=== PATIENT | male | born 1940 | race American Indian/Alaskan Native ===

== ENCOUNTER 2020-05-04 17:43 | Inpatient (IN) | payer SELFPAY ==
[2020-05-04] MEDS ORDERED: HEPARIN 10,000 UNITS/10 ML VIAL IV ONE (17:47)
--- NOTE | 2020-05-04 17:50 | Emergency Department Report ---
HPI - General PUI?: No Time Seen by Provider: 05/04/20 17:44 - HPI HPI: Room 41 The patient is a 79-year-old male present with a chief complaint of STEMI. The patient reportedly went to [facility] today for blood pressure management. While there he was found to be hypertensive, diaphoretic and bradycardic and EKG was performed that was concerning for a STEMI. Patient denies ever having had chest pain but admits to shortness of breath nausea and vomiting while with EMS. ED Past Medical Hx - Past Medical History Hx Diabetes: Yes Hx COPD: Yes Additional medical history: "Platelet dysfunction" - Surgical History Past Surgical History?: No - Family History Family history: no significant - Social History Smoking Status: Unknown if ever smoked Substance Use Type: None ED Review of Systems ROS: Stated complaint: STEMI Other details as noted in HPI Physical Exam - Physical Exam Physical Exam: GENERAL: The patient is well-developed well-nourished male lying on stretcher not appearing to be in acute distress. [] HEENT: Normocephalic. Atraumatic. Extraocular motions are intact. Patient has moist mucous membranes. NECK: Supple. Trachea midline CHEST/LUNGS: Clear to auscultation. There is no respiratory distress noted. HEART/CARDIOVASCULAR: Regular. There is no tachycardia. There is no gallop rub or murmur. ABDOMEN: Abdomen is soft, nontender. Patient has normal bowel sounds. There is no abdominal distention. SKIN: There is no rash. There is no edema. There is no diaphoresis. NEURO: The patient is awake, alert, and oriented. The patient is cooperative. The patient has no focal neurologic deficits. The patient has normal speech MUSCULOSKELETAL: There is no evidence of acute injury. ED Course - Consultations Consultation #1: 05/04/20 17:26 EKG sent to in case discussed with Dr. La. Code STEMI called- agrees with code STEMI ED Medical Decision Making - EKG Data -: EKG Interpreted by Me EKG shows normal: sinus rhythm Rate: normal - EKG Data When compared to previous EKG there are: previous EKG unavailable Interpretation: acute VT (ST elevations inferiorly with reciprocal changes) Critical care attestation.: If time is entered above; I have spent that time in minutes in the direct care of this critically ill patient, excluding procedure time. ED Disposition Clinical Impression: STEMI (ST elevation myocardial infarction) Disposition: DC-09 OP ADMIT IP TO THIS HOSP Is pt being admited?: Yes Does the pt Need Aspirin: Yes Condition: Serious Time of Disposition: 17:56 (Awaiting Clinical Research Scientist)
[2020-05-04] MEDS: HEPARIN/ 0.45% NACL DRIP 25,000 UNIT/500 ML BAG IV SCH ×2 (17:57→21:25)
[2020-05-04 18:00] LABS: Basophils # (Auto) 0.1 K/mm3 (0.0-0.1); Basophils % (Auto) 0.5 % (0.0-1.8); Eosinophils % (Auto) 0.2 % (0.0-4.3); Hematocrit 32.3 % (35.5-45.6); Hemoglobin 10.6 gm/dl (11.8-15.2); Lymphocytes # (Auto) 1.4 K/mm3 (1.2-5.4); Lymphocytes % (Auto) 10.6 % (13.4-35.0); Mean Corpuscular HGB Conc 33 % (32-34); Mean Corpuscular Volume 87 fl (84-94); Monocytes # (Auto) 0.8 K/mm3 (0.0-0.8); Monocytes % (Auto) 5.9 % (0.0-7.3); Platelet Count 218 K/mm3 (140-440); Red Blood Count 3.72 M/mm3 (3.65-5.03); Red Cell Distribution Width 13.6 % (13.2-15.2)
[2020-05-04] MEDS ORDERED: HEPARIN/NS 5000 UNIT/500ML 500 ML IR ONE ×3 (18:05→19:21)
[2020-05-04] MEDS ORDERED: MIDAZOLAM 2 MG/2 ML INJ ONE (18:05)
[2020-05-04] MEDS ORDERED: fentaNYL 100 MCG/2 ML INJ ONE (18:06)
[2020-05-04] MEDS ORDERED: NITROGLYCERIN SYRINGE 0 ML ONE (18:07)
[2020-05-04 18:13] LABS: Partial Thromboplastin Time 25.6 Sec. (24.2-36.6)
[2020-05-04] MEDS ORDERED: SODIUM CHLORIDE 0.9% 500 ML 500 ML ONE ×2 (18:15→21:35)
[2020-05-04 18:17] LABS: Calcium 8.4 mg/dL (8.4-10.2)
[2020-05-04] MEDS ORDERED: EPINEPHrine 1 MG/10 ML SYRINGE ONE ×2 (18:17→18:18)
[2020-05-04] MEDS ORDERED: LIDOCAINE PF 100 MG/5 ML (CARDIAC SYRINGE) IV ONE ×2 (18:17→18:18)
[2020-05-04] MEDS ORDERED: ATROPINE 0.1% (1 MG/10 ML) CARDIAC SYRINGE ONE ×3 (18:17→18:33)
[2020-05-04] MEDS ORDERED: PHENYLEPHRINE/NS 1,000 MCG/10 ML SYRINGE (OR USE) IV ONE (18:17)
[2020-05-04] MEDS: LIDOCAINE (2%) 20 MG/1 ML VIAL 20 ML MDV INFILTRATI ONE ×2 (18:20→18:23)
[2020-05-04] MEDS ORDERED: ALBUTEROL 2.5 MG/3 ML NEBU IH PRN (18:26)
--- NOTE | 2020-05-04 18:28 | History and Physical Report ---
History of Present Illness Chief complaint: My blood pressure is high History of present illness: 79 YO Male with DM, COPD presents to ED for evaluation. Pt reports "my blood pressure is high". Pt states that he has experienced uncontrolled blood pressure. Pt was seen and evaluated by his pcp and was found to be hype rtensive, diaphoretic and bradycardic. An EKG was performed and the patient was found to have evidence of ischemia. EMS was notified and the patient was found to be in distress and subsequently transported to [facility] for further care and evaluation. The patient was seen and evaluated in ED and found to have evidence of STEMI as well as, CHF, Bradycardia, SARAH, and Acidosis. Cardiology consulted in ED, and the patient was taken urgently to feed mill lab technician for surgical intervention. Pt admitted to ICU and initiated on telemtry due to increased risk for cardiac decompensation. Pt denies fever, chills, CP, palpitations, NVD, Trauma, productive cough, skin rash, recent ill contacts, or known exposure to COVID 19. Advanced care planning conducted in ED. Past History Past Medical History: COPD, diabetes Past Surgical History: No surgical history, Other (reviewed) Social history: , lives with family Family history: no significant family history (reviewed) Medications and Allergies Allergies Allergy/AdvReac Type Severity Reaction Status Date / Time No Known Allergies Allergy Unverified 05/04/20 17:51 Home Medications Medication Instructions Recorded Confirmed Last Taken Type metFORMIN [Glucophage] 1,000 mg PO BID 05/04/20 05/04/20 Unknown History Active Meds: Active Medications Albuterol (Albuterol 2.5 Mg/3 Ml Nebu) 2.5 mg IH Q3HRT PRN PRN Reason: Shortness Of Breath Heparin Sodium/Sodium Chloride (Heparin/ 0.45% Nacl-25,000 Unit/500 Ml) 25,000 unit in 500 mls @ 18 mls/hr IV TITRATE RENETTA; Protocol Last Admin: 05/04/20 17:57 Dose: 900 units/hr, 18 mls/hr Documented by: Sodium Chloride (Sodium Chloride 0.9% 10 Ml Flush Syringe) 10 ml IV BID RENETTA Sodium Chloride (Sodium Chloride 0.9% 10 Ml Flush Syringe) 10 ml IV PRN PRN PRN Reason: LINE FLUSH Review of Systems Constitutional: no weight loss, no weight gain, no chills, no sweats Ears, nose, mouth and throat: no ear pain, no tinnitis, no decreased hearing, no nose pain, no nasal congestion, no nasal discharge Cardiovascular: no chest pain, no palpitations, no rapid/irregular heart beat, no edema, no syncope Gastrointestinal: no abdominal pain, no nausea, no constipation Genitourinary Male: no hematuria, no flank pain, no discharge, no urinary frequency Rectal: no pain, no bleeding Musculoskeletal: no neck pain, no arm numbness/tingling, no shooting leg pain Integumentary: no rash, no pruritis, no redness, no sores, no wounds, no blisters Neurological: no transient paralysis, no parathesias, no tingling, no seizures Psychiatric: no anxiety, no memory loss, no sleep disturbances, no change in appetite Endocrine: no cold intolerance, no polydipsia Hematologic/Lymphatic: no easy bleeding, no lymphedema Allergic/Immunologic: no urticaria, no allergic rhinitis, no anaphylaxis Exam - Constitutional Vitals: Temp Pulse Resp BP Pulse Ox 98.3 F 41 L 16 110/39 98 05/04/20 17:47 05/04/20 17:47 05/04/20 17:52 05/04/20 17:47 05/04/20 17:47 General appearance: Present: mild distress - EENT Eyes: Present: PERRL ENT: hearing intact, clear oral mucosa - Neck Neck: Present: supple, normal ROM - Respiratory Respiratory effort: normal Respiratory: bilateral: CTA - Cardiovascular Heart Sounds: Present: S1 & S2. Absent: rub, click - Extremities Extremities: pulses symmetrical Extremity abnormal: edema Peripheral Pulses: within normal limits - Abdominal General gastrointestinal: Present: soft, non-tender, non-distended, normal bowel sounds Male genitourinary: Present: normal - Integumentary Integumentary: Present: clear, warm, dry - Musculoskeletal Musculoskeletal: gait normal, strength equal bilaterally - Psychiatric Psychiatric: appropriate mood/affect, intact judgment & insight - Neurologic Neurologic: CNII-XII intact, moves all extremities HEART Score - HEART Score Troponin: Troponin T 3.270 ng/mL (0.00-0.029) H* 05/04/20 Unknown Results - Labs CBC & Chem 7: 05/04/20 Unknown 05/04/20 Unknown Labs: Abnormal lab results 05/04/20 05/04/20 Range/Units Unknown Unknown WBC 13.6 H (4.5-11.0) K/mm3 Hgb 10.6 L (11.8-15.2) gm/dl Hct 32.3 L (35.5-45.6) % Lymph % (Auto) 10.6 L (13.4-35.0) % Seg Neutrophils % 82.8 H (40.0-70.0) % Seg Neutrophils # 11.3 H (1.8-7.7) K/mm3 Sodium 134 L (137-145) mmol/L Potassium 5.4 H (3.6-5.0) mmol/L Chloride 97.7 L (98-107) mmol/L Carbon Dioxide 19 L (22-30) mmol/L BUN 25 H (9-20) mg/dL Creatinine 1.7 H (0.8-1.3) mg/dL Glucose 353 H (75-100) mg/dL Total Creatine Kinase 1930 H (55-170) units/L CK-MB (CK-2) 128.0 H (0.0-4.0) ng/mL CK-MB (CK-2) Rel Index 6.6 H (0-4) Troponin T 3.270 H* (0.00-0.029) ng/mL NT-Pro-B Natriuret Pep 4987 H (0-900) pg/mL Assessment and Plan - Patient Problems (1) STEMI (ST elevation myocardial infarction) Status: Acute Plan to address problem: Cardiology team consulted in ED, therapeutic anticoagulation. Patient taken urgently to Salon Designer for cardiac intervention. Patient moved to ICU for further care and monitoring. The high probability of a clinically significant, sudden or life threatening deterioration of the [cardiac, pulmonary, renal,] system(s) required my full and direct attention, intervention and personal management. The aggregate critical care time was [65] minutes. This time is in addition to time spent performing reported procedures but includes the following: [x] Data Review and interpretation [x] Patient assessment and monitoring of vital signs [x] Documentation [x] Medication orders and management (2) CHF (congestive heart failure) Status: Acute Qualifiers: Heart failure chronicity: acute Plan to address problem: Strict I's/O, monitor urine output every shift, daily weight, afterload reduct ion, cardiac cath as per cardiology team, supportive care, continue medical management. (3) SARAH (acute kidney injury) Status: Acute Plan to address problem: IV fluid resuscitation therapy, BMP, repeat BMP in a.m. to monitor serum c reatinine as well as GFR. (4) Acidosis Status: Acute Plan to address problem: Supportive care, BMP, repeat BMP in a.m., continue medical management. (5) DVT prophylaxis Status: Acute Plan to address problem: SCD to bilateral lower extremities while in bed, therapeutic anticoagulation. (6) Advance care planning Status: Acute Plan to address problem: Disease education conducted, patient is full code, care plan discussed, prognosis discussed, patient knowledges understanding and agreement with care plan, +30 minutes.
[2020-05-04] MEDS: HEPARIN 10,000 UNITS/10 ML VIAL ONE ×2 (18:49→19:32)
[2020-05-04 18:51] LABS: Chol/HDL Ratio 3.6 %
[2020-05-04] MEDS ORDERED: SODIUM CHLORIDE 0.9% 1000 ML 1,000 ML ONE (19:10)
[2020-05-04] MEDS ORDERED: DOPamine/D5W 800 MG/250 ML 0 MG/0 ML BAG IV ONE (20:40)
--- NOTE | 2020-05-04 20:48 | Cardiac Catherization Report ---
CARDIAC CATHETERIZATION AND CORONARY INTERVENTION REPORT CLINICAL INFORMATION: A 79-year-old gentleman with history of hypertension, diabetes mellitus, had epigastric discomfort and pain on Thursday night that is 2 days ago. Subsequently, he was not feeling well and today that is on Thursday, the patient went to urgent care where his blood pressure was found to be 70 systolic with slow heart rate and EKG showed evidence of acute inferior injury. Because of persistent ST changes even though the patient did not have any chest pain; however, has nausea and complaints of shortness of breath, was taken to the catheterization laboratory on an emergency basis. The patient's family were contacted by the ER physician and was explained of the diagnosis and they are agreeable to proceed with cardiac catheterization. DESCRIPTION OF PROCEDURE: The patient was brought to the catheterization laboratory on an emergency basis. The patient's right groin was prepared in standard fashion. Using fluoroscopy, right femoral artery puncture was made without difficulty and 6-Hebrew sheath was introduced. Subsequently, the right femoral vein access was obtained using arterial puncture needle. A 7-Hebrew sheath was introduced and a balloon-tipped pacemaker catheter was advanced under the fluoroscopy into the right ventricular apex and good capture was noted. Ventricular rate was left at 60 beats per minute. Subsequently, diagnostic cardiac catheterization was performed using a 6-Hebrew multipurpose catheter. Left ventriculogram was performed in GIL projection followed by angiograms of the right coronary artery using the JR4 catheter and the angiograms of the left coronary artery using JL3.5 catheter. Following findings were noted. Initial aortic pressure was 86/42, left ventricular pressure is 86/27. Heart rate was 44 minute. Left ventriculogram done in GIL projection showed hypokinesis of the inferior wall and mild hypokinesis of the anterior wall. Overall, ejection fraction was felt to be around 40-45%. End diastolic pressure of 27 mmHg noted. Mitral regurgitation could not be evaluated. RIGHT CORONARY ARTERY: Dominant vessel is occluded in the proximal part with no visualization of the distal vessel. LEFT CORONARY ARTERY: Showed left main without significant disease. LAD, which does not reach the apex shows diffuse proximal long lesion approaching 90%. Distally, LAD is medium sized vessel and bypassable. Similarly, circumflex artery showed significant ostial and proximal lesion to mid lesion approaching 80%. Fairly large obtuse marginal branch was noted, which is bypassable. CORONARY INTERVENTION OF THE RCA: Because of the above findings with the culprit lesion being the RCA, it was decided to proceed with intervention of the RCA. The patient received a total of 8000 units of intravenous heparin. A JR4 guiding catheter was used to engage the right coronary artery. A 0.014 inch [place] XT guidewire was advanced into the distal aorta without much difficulty. Using 2.5 x 15 mm Euphora balloon, multiple dilations were made in the proximal, mid, distal and the LV branch. However, the lesion in the proximal RCA was very tight non dilatable even at atmospheres of 24 mmHg. After multiple balloon inflations throughout different segments of vessel ,JORGE ALBERTO 0 flow was converted to JORGE ALBERTO 3. However, there were significant lesions noted in the LV branch of the RCA with LV branch itself being medium sized vessel. Similarly PDA had a long lesion in the proximal part with a medium-sized PDA. JORGE ALBERTO 3 flow was noted; however, even using NC balloon up to 25 atmospheres, the lesion in the proximal RCA was not dilatable. AngioSculpt balloon was not able to be advanced through the lesion. Considering the above findings, it was felt that the patient would benefit from revascularization surgically. Because of his unstable nature, it was decided to insert an intraaortic balloon pump. 34 mL 7-Hebrew intraaortic balloon pump was inserted under fluoroscopy in a standard fashion. It was placed from just above melissa to below the diaphragm with good inflation and deflation. Good augmentation was noted. 1:1 ratio was applied. The patient's blood pressure initially was low; however, after angioplasty his blood pressure was 110-120 systolic. FINAL IMPRESSION: Balloon angioplasty of the right coronary artery, which had JORGE ALBERTO 0 flow initially resulted in JORGE ALBERTO 3 flow. However, diffuse disease was noted with multiple balloon inflations up to 24 mmHg. There was a non dilatable lesion noted in the proximal right coronary artery, similarly diffuse disease was noted in the left ventricular branch and posterior descending artery. Considering the above angiographic picture, it was felt intraaortic balloon pump would help him. Discussed with Dr. Dr. Bertrand, cardiothoracic surgeon at [facility] who accepted the patient for transfer. Acute inferior wall myocardial infarction, probably of 48 hours duration, presently with cardiogenic shock, hypotension and bradycardia with severe triple-vessel disease and moderate left ventricular dysfunction. The patient has underlying intraaortic balloon pump and a temporary pacemaker inserted. The patient will be transferred to [facility] for further management. The patient will be continued on IV heparin. Just before being transferred to [facility], his blood pressure was 70 and started on dopamine. Also intraaortic balloon augmentation continued. Pacemaker is functioning well with heart rate of 60 beats per minute. Overall, prognosis is guarded. I had a long discussion with the patient's on the phone; she understands. JOB# [id number] KHANG/PATRICIA RAND
[2020-05-04] MEDS ORDERED: DOPamine/D5W 800 MG/250 ML 800 MG/250 ML BAG IV ONE (21:27)
--- NOTE | 2020-05-05 00:20 | Consultation ---
CARDIOLOGY CONSULTATION HISTORY OF PRESENT ILLNESS: The patient is a 79-year-old [place] gentleman, on Thursday night that is 2 days ago night, he had some stomach pain and upset. Subsequently, he did not have any significant symptoms on , but he is feeling very weak this morning. He is not feeling well, even yesterday. Hence, was taken to the urgent care center, at which time his blood pressure was found to be 70 systolic, along with slow heart rate. EKG was performed, which showed ST elevations in the inferior leads with ST depressions in the lateral leads along with severe bradycardia, heart rate in 30s and 40s. He was given fluids and transferred to [facility] and as a part of the STEMI protocol patient was taken to the catheterization laboratory on an emergency basis. No family members available. DESCRIPTION OF PROCEDURE: The patient was brought to the catheterization laboratory on an emergency basis. The patient received heparin in the Emergency Room. The patient's past medical history is obtained after the procedure from the family. The patient has a history of diabetes mellitus for last few years and also history of hypertension. Otherwise, being followed at urgent care. No significant problems up to few days ago. History of right hip replacement 10 years ago. SOCIAL HISTORY: Does not smoke or use alcohol. HOME MEDICATIONS: Included aspirin 81 mg a day, eyedrops, glipizide 10 mg once a day, losartan 50 mg once a day, metformin 1 g twice a day, vitamin B12 and vitamin D3. The patient's diagnosis from urgent care included emphysema, type 2 diabetes mellitus with hyperlipidemia, aortic atherosclerosis, benign essential hypertension, vitamin D deficiency and primary pulmonary hypertension. PHYSICAL EXAMINATION: GENERAL: The patient is in no acute distress; however, blood pressure is 100 systolic with heart rate of 30-40 per minute. Denies any chest pain, but nausea. HEENT: Unremarkable. Conjunctivae pink. Sclerae anicteric. NECK: Supple. HEART: Regular, probably S4. ABDOMEN: Benign. EXTREMITIES: Without edema. NEUROLOGIC: Alert, oriented x 3. LABORATORY DATA: EKG showed sinus rhythm with 2:1 AV block, which can be Mobitz type 2 with underlying intraventricular conduction defect and ST elevations in the leads II, III, aVF and the ST depressions in I and aVL. FINAL IMPRESSION: 1. Acute or subacute inferolateral myocardial infarction with ST elevations with no chest pain, but shortness of breath or nausea. Considering his significant hypotension and above bradycardia, the patient was taken emergently to the catheterization laboratory as a part of the STEMI protocol. This showed severe triple-vessel disease with mild hypokinesis of the inferior wall. Ejection fraction is 45%. The patient does have a long lesion in the proximal and mid LAD approaching 90%, the circumflex artery similarly shows severe disease involving the proximal and mid part approaching 80% with bypassable marginal vessel. 2. Occluded right coronary artery was noted in the proximal part. Subsequently, angioplasty with balloon was performed at multiple sites; however, difficult to dilate the proximal lesion. Lesion was healed with an AngioSculpt balloon, it could not be dilated. After multiple balloon angioplasties at multiple sites, JORGE ALBERTO 3 flow was noted in the RCA. However, long segmental lesions were noted in the LV branch and also in the proximal PDA in addition to calcific non-dilatable proximal and mid RCA lesion. Considering the above anatomy, it was felt the patient would benefit from bypass surgery. Also had a temporary pacemaker inserted because of severe bradycardia with a 2:1 AV block. Intraaortic balloon pump was inserted in the right groin. Findings were discussed with Dr. Bertrand and considering the patient would need a bypass surgery, he accepted the transfer to [facility]. Arrangements are being made to be transferred to [facility]. His blood pressure ranges 110-120 systolic with good augmentation with 1:1 balloon pump activation. Also, he has temporary pacemaker at a rate of 60 beats per minute. Overall, prognosis is guarded. I had a long discussion with his on the phone about the patient's status and explained to them patient is being transferred to [facility] for further management probably including bypass surgery. They understand and they are agreeable. Overall, prognosis is guarded. JOB# [id number] KHANG/PATRICIA
[2020-05-05 00:53] LABS: Hematocrit 31.8 % (35.5-45.6); Hemoglobin 10.4 gm/dl (11.8-15.2)
[2020-05-05 01:02] LABS: INR 1.22 (0.87-1.13)
[2020-05-05 01:36] VITALS: BP 108/62
[2020-05-05 03:07] LABS: BUN/Creatinine Ratio 18; Blood Urea Nitrogen 24 mg/dL (9-20); Calcium 8.4 mg/dL (8.4-10.2); Hemolysis Index 1
--- NOTE | 2020-05-07 11:38 | Discharge Summary ---
Providers - Providers Date of Admission: 05/04/20 18:26 Attending physician: BAKARI CANTU 05/04/20 18:26 Consult to Physician [CONS] Routine Comment: Consulting Provider: SÁNCHEZ CRISTINA Physician Instructions: Reason For Exam: stemi Primary care physician: AIR BAG BUILDER Hospitalization Condition: Serious Procedures: Cardiac Cath: Severe obstructive disease Hospital course: 79 YO Male with DM, COPD presents to ED for evaluation. Pt reports "my blood pressure is high". Pt states that he has experienced uncontrolled blood pressure. Pt was seen and evaluated by his pcp and was found to be hypertensive, diaphoretic and bradycardic. An EKG was performed and the patient was found to have evidence of ischemia. EMS was notified and the patient was found to be in distress and subsequently transported to [facility] for further care and evaluation. The patient was seen and evaluated in ED and found to have evidence of STEMI as well as, CHF, Bradycardia, SARAH, and Acidosis. Cardiology consulted in ED, and the patient was taken urgently to cathode builder for surgical intervention. Pt admitted to ICU and initiated on telemtry due to increased risk for cardiac decompensation. Patient underwent cardiac catheterization as per cardiology team. Patient was found to have significant disease burden and required cardiothoracic surgical intervention. Patient transferred to [facility] for further care. Patient medically stable for transfer. Benefits of transfer outweigh risk of decompensation. 35 minutes dedicated To p atient discharge and coordination of care. Disposition: DC/ [facility] IP - Discharge Diagnoses (1) STEMI (ST elevation myocardial infarction) Status: Inactive (2) CHF (congestive heart failure) Status: Acute Qualifiers: Heart failure chronicity: acute (3) SARAH (acute kidney injury) Status: Acute (4) Acidosis Status: Acute (5) DVT prophylaxis Status: Acute (6) Advance care planning Status: Acute Core Measure Documentation - Palliative Care Palliative Care/ Comfort Measures: Not Applicable - Core Measures Any of the following diagnoses?: acute VT - Acute VT Discharge Requirements Aspirin at discharge: Yes JAMIE/ARB for LVSD if EF <40%: Yes Beta kim at discharge: Yes Statin for LDL = or >100 mg/dl on DC: Yes Exam - Constitutional Vitals: Temp Pulse Resp BP Pulse Ox 97.7 F 85 24 108/62 100 05/04/20 23:23 05/05/20 01:21 05/05/20 01:21 05/05/20 01:30 05/05/20 01:21 General appearance: Present: mild distress - EENT Eyes: Present: PERRL ENT: hearing intact, clear oral mucosa - Neck Neck: Present: supple, normal ROM - Respiratory Respiratory effort: normal Respiratory: bilateral: CTA - Cardiovascular Heart Sounds: Present: S1 & S2. Absent: rub, click - Extremities Extremities: pulses symmetrical, No edema Peripheral Pulses: within normal limits - Abdominal General gastrointestinal: Present: soft, non-tender, non-distended, normal bowel sounds Male genitourinary: Present: normal - Integumentary Integumentary: Present: clear, warm, dry - Musculoskeletal Musculoskeletal: gait normal, strength equal bilaterally - Psychiatric Psychiatric: appropriate mood/affect, intact judgment & insight - Neurologic Neurologic: CNII-XII intact, moves all extremities Plan Activity: advance as tolerated Follow up with: PRIMARY CARE, [Primary Care Provider] - 7 Days
== END 2020-05-05 02:20 | disposition short-term general hospital (02) | DRG 271 ==
LOC: ED 17:43 → CC1 18:26
PROVIDERS: ADMIT Internal Medicine; ATTEND Internal Medicine
PROC: 4A023N7 Measurement of Cardiac Sampling and Pressure, Left Heart, Percutaneous Approach (ICD-10-PCS; principal; 2020-05-04)
PROC: 5A02210 Assistance with Cardiac Output using Balloon Pump, Continuous (ICD-10-PCS; 2020-05-04)
PROC: 02703ZZ Dilation of Coronary Artery, One Artery, Percutaneous Approach (ICD-10-PCS; 2020-05-04)
PROC: B2111ZZ Fluoroscopy of Multiple Coronary Arteries using Low Osmolar Contrast (ICD-10-PCS; 2020-05-04)
PROC: B2151ZZ Fluoroscopy of Left Heart using Low Osmolar Contrast (ICD-10-PCS; 2020-05-04)
PROC: 5A1223Z Performance of Cardiac Pacing, Continuous (ICD-10-PCS; 2020-05-04)
DX: I21.3 ST elevation (STEMI) myocardial infarction of unspecified site (principal); N17.9 Acute kidney failure, unspecified; E87.2 Acidosis; I50.9 Heart failure, unspecified; E11.9 Type 2 diabetes mellitus without complications; J43.9 Emphysema, unspecified; E78.5 Hyperlipidemia, unspecified; E55.9 Vitamin D deficiency, unspecified; I27.20 Pulmonary hypertension, unspecified; I11.0 Hypertensive heart disease with heart failure
CPT/HCPCS: 33210; 33967; 36415; 80048; 80061; 82550; 82553; 83880; 84484; 85014; 85018; 85025; 85049; 85610; 85730; 92920; 93005; 93458; 96374; 96375; G0378; C1725; C1769; C1887; C1894; J0171; J0461; J1265; J1644; J2001; J2250; J2370; J3010; J7030; J7040; Q9967